=== PATIENT | male | born 1980 | race Caucasian/White ===

== ENCOUNTER 2024-10-24 07:57 | Day surgery (SDC) | payer OTHER ==
[~2024-10-24] VITALS: Ht 170.2 cm; Wt 80.0 kg
[~2024-10-24 07:57] MED LIST: CEFAZOLIN SODIUM 2 GM/20 ML SYR IV SCH; CLONIDINE HCL0.2 MG PO; IBLOOD GLUCOSE TEST STRIP 1 EA TEST VI PRN; LACTATED RINGER'S 1,000 ML IV SCH; LIDOCAINE HCL 1% 5 ML SDV INJ ONE; VENLAFAXINE H37.5 MG PO; VITAMIN D350 MCG PO
[2024-10-24] MEDS ORDERED: OXYMETAZOLINE HCL 30 ML BTL NAS SCH (08:00)
[2024-10-24 08:04] VITALS: BP 126/76
[2024-10-24] MEDS ORDERED: LIDOCAINE 1% W/ EPI 1:100,000 20 ML MDV ONE (08:12)
[2024-10-24] MEDS ORDERED: fentaNYL citrate 100 MCG/2 ML VIAL ONE ×2 (08:18→09:25)
[2024-10-24] MEDS ORDERED: DEXAMETHASONE SOD PHOS 4 MG/ML VIAL ONE (08:18)
[2024-10-24] MEDS ORDERED: LIDOCAINE HCL 2% 5 ML SDV ONE (08:18)
[2024-10-24] MEDS ORDERED: KETOROLAC TROMETHAMINE 30 MG/ML VIAL ONE (08:18)
[2024-10-24] MEDS ORDERED: MIDAZOLAM HCL 2 MG/2 ML VIAL ONE (08:19)
[2024-10-24] MEDS ORDERED: BACTRIM DS TAB1 EACH PO (08:21)
[2024-10-24] MEDS ORDERED: NALOXONE HCL 0.4 MG SYR IV PRN (08:45)
[2024-10-24] MEDS ORDERED: IBLOOD GLUCOSE TEST STRIP 1 EA TEST VI PRN (08:45)
[2024-10-24] MEDS ORDERED: fentaNYL citrate 50 MCG/ML SDV IV PRN (08:45)
[2024-10-24] MEDS ORDERED: MIDAZOLAM HCL 2 MG/2 ML VIAL IV PRN (08:45)
--- NOTE | 2024-10-24 09:43 | NUR ---
10/24/24 0943 Jayla Cancino PATIENT OPENS HIS EYES TO HIS NAME. HE FOLLOWS INSTRUCTIONS TO OPEN HIS EYES. ORAL AIRWAY IS REMOVED. GENTLE ORAL SUCTIONING IS PERFORMED.
[2024-10-24] MEDS ORDERED: HYDROCODONE/ACETA 5/325 TAB PO PRN (10:15)
--- NOTE | 2024-10-24 10:26 | NUR ---
PT ARRIVES TO DS FROM PACU VIA STRETCHER. PT IS A&O AND ASKING APPROPRIATE QUESTIONS AT THIS TIME. PT STATES PAIN IS TOLERABLE, W/PRESSURE IN LFT EAR. RESPIRATIONS EVEN AND UNLABORED, NO SIGNS OF DISTRESS. SHIRLEY SUCTION WITHIN REACH FOR PT USE OF SUCTIONING SPIT. PUDDING AND CRACKERS PROVIDED, PT TOLERATING ICE WATER WITHOUT DIFFICULTY SWALLOWING. PT CALLED AND UPDATED AT PT REQUEST. PT STATES NO FURTHER NEEDS OR QUESTIONS AT THIS TIME, CALL LIGHT WITHIN REACH.
[2024-10-24 10:30] VITALS: BP 123/87
--- NOTE | 2024-10-24 10:50 | NUR ---
DRIP PAD CHANGED D/T SHADOWING THROUGH FRONT LAYER. HUMERA AGUILAR AT BEDSIDE DISCUSSING PROCEDURE AND ANSWERING PT QUESTIONS AT THIS TIME.
--- NOTE | 2024-10-24 11:20 | NUR ---
PT FAMILY ARRIVED. PT REPORTS NEED TO URINE VOID. PT SITS AT BEDSIDE W/NO REPORT OF ONSET OF NAUSEA/DIZZINESS. PT AMBULATES TO RESTROOM W/THIS RN STANDBY ASSIST. PT URINE VOID 225 ML CLEAR/YELLOW URINE. PT BACK TO ROOM AND REQUESTS PRN PAIN MED FOR 4/10 PAIN, GIVEN (SEE EMAR). PT RESTING W/FAMILY AT BEDSIDE EATING CRACKERS. PT REPORTS NO FURTHER NEEDS OR QUESTIONS AT THIS TIME. CALL LIGHT WITHIN REACH.
--- NOTE | 2024-10-24 11:24 | OR ---
[facility] [place] [facility] [address], [place] [address] Signed DATE OF OPERATION: 10/24/2024 SURGEON: Jean Grubbs MD PREOPERATIVE DIAGNOSES: Nasal obstruction due to septal deformity and inferior turbinate hypertrophy. POSTOPERATIVE DIAGNOSES: Nasal obstruction due to septal deformity and inferior turbinate hypertrophy. PROCEDURE: Septoplasty cautery bilateral inferior turbinates. ANESTHESIA: General LMA, BLEACHER SULFITE PULP, Celeste Caballero. 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 This has been unresponsive to appropriate medications. Preop sinus CT has been performed and is negative for sinus pathology. He is taken to the operating room for the above-mentioned procedures. OPERATIVE PROCEDURE AND FINDINGS: After informed consent, the patient was taken to the operating room, placed in the supine position where general LMA anesthesia was induced. The patient and procedure were verified. The patient received preoperative intranasal oxymetazoline and intravenous Ancef. The patient was repositioned. Headlight speculum exam of the nasal cavity showed a septal deformity on the left side. A large spur partially obstructive. The septal mucosa was injected with 1% lidocaine with epi. The septal mucosa was elevated off the spur and the deviated septal bone and cartilage was removed with Sharifa. The airway was markedly improved in this manner. Inferior turbinates were then cauterized with a long handle needle point cautery. Multiple transmucosal passes starting on the right side, medial and inferior surface of the inferior turbinate starting anteriorly extending all the way back posteriorly. Excellent shrinkage of the turbinate was obtained. Improvement in the nasal airway. The same procedure on the left inferior turbinate. Hemostasis was verified. The packing was then placed, one piece of Merocel, trimmed equal amount, coated with Neosporin, tied anteriorly over a pad. The pharynx was suctioned clear of blood secretions. The patient was then awakened, extubated, transported to recovery room in Electronically Signed By: JEAN GRUBBS MD 10/24/24 1124 PATIENT NAME: RAHEEM HERBERT OPERATIVE REPORT DATE OF : 82 REPORT #: [id number] PHYSICIAN: JEAN GRUBBS MD PCP: GARY HERNÁNDEZ REPORT IS CONFIDENTIAL AND NOT TO BE RELEASED WITHOUT AUTHORIZATION [address] [address] Signed good condition. No complications. BLOOD LOSS: Minimal. SPECIMEN: None. DRAINS: None. PACKING: One piece of Merocel each nostril. Jean Grubbs MD GC/MODL /[id number] Copies: ~ Electronically Signed By: JEAN GRUBBS MD 10/24/24 1124 PATIENT NAME: RAHEEM HERBERT OPERATIVE REPORT DATE OF : 82 REPORT #: [id number] PHYSICIAN: JEAN GRUBBS MD PCP: GARY HERNÁNDEZ REPORT IS CONFIDENTIAL AND NOT TO BE RELEASED WITHOUT AUTHORIZATION
[2024-10-24 11:27] VITALS: BP 129/72
--- NOTE | 2024-10-24 12:05 | NUR ---
IN PT ROOM FOR POST PAIN DIRECT CHILL CASTER ASSESSMENT. PT STATES PAIN HAS IMPROVED AND HE IS READY TO GO HOME. PT GETTING DRESSED W/ ASSISTANCE, CALL LIGHT WITHIN REACH.
--- NOTE | 2024-10-24 12:20 | NUR ---
IN PT ROOM FOR DC EDUCATION. PT AND PT STATE VERBAL UNDERSTANDING TO DC EDUCATION AT THIS TIME. DRIP PAD DEMONSTRATION AT THIS TIME FOR PT AND , SUPPLIES PROVIDED AND VERBAL UNDERSTANDING TO DEMONSTRATION. IV DC'ED, WNL. PT OFF OF UNIT VIA WC TO PASSENGER SIDE OF VEHICLE. PT GOES TO GET INTO CAR AND STATES, "IM GLO THROW UP". THIS RN PROVIDES EMESIS BAG. PT THEN STATES, "NEVERMIND, IM GLO PASS OUT". THIS RN AT HEAD OF WC TO SUPPORT AIRWAY AND HEAD CONTROL. PT AT SIDE OF WC. PASSING BY RN AT SIDE OF WC TO ASSIST. PT BACK TO UNIT AND THIS RN 1PA W/BEAR HUG PT BACK TO BED, VS TAKEN, WNL. PT RESTING IN BED NOW W/HOB 30 DEGREES. BAIRHUGGER DELIVERING COLD AIR TO ABDOMEN, COLD RAG ON FOREHEAD, AND CPOX IN PLACE. PT STATES HE IS STARTING TO FEEL BETTER, BUT IS TIRED. PT RESTING W/EYES CLOSED. FAMILY AT BEDSIDE. PT ACROSS FROM NURSE STATION. CALL LIGHT WITHIN REACH.
[2024-10-24 12:29] VITALS: BP 115/73
--- NOTE | 2024-10-24 12:55 | NUR ---
IN PT ROOM, PT AWAKENING. PT ASKED FOR CRANBERRY JUICE AND SIPS OF ICE WATER. PROVIDED, AND PT TOLERATING WELL. CRACKERS AND PUDDING PROVIDED, PT DENIED SANDWICH AT THIS TIME. CALL LIGHT WITHIN REACH, PT AT BEDSIDE. HUMERA AGUILAR CALLED @1487 FOR UPDATE ON PT, NO NEW ORDERS AT THIS TIME.
--- NOTE | 2024-10-24 13:16 | NUR ---
IN PT ROOM FOR ASSESSMENT. PT STATES HE IS FEELING A LOT BETTER. PT SKIN IS NO LONGER SWEATY AND HE STATES HE HIS FEELING MORE LIKE HIMSELF. REMAINS AT BEDSIDE AND CALL LIGHT WITHIN REACH, PT STATES NO FURTHER NEEDS OR QUESTIONS AT THIS TIME.
--- NOTE | 2024-10-24 13:30 | NUR ---
PT STATES READY TO ATTEMPT TO GO HOME. PT SITS AT BEDSIDE FOR 5 MINUTES W/THIS RN IN ROOM, PT STATES NO NAUSEA, DIZZINESS AT THIS TIME. PT THEN STANDS FOR 1 MINUTE AND STATES NO NAUSEA, DIZZINESS. PT OFF OF UNIT AT 1340. PT TO PASSENGER SIDE OF VEHICLE, ALL BELONGINGS IN PT POSSESSION. PT STATES NO FURTHER NEEDS OR QUESTIONS AT THIS TIME.
[2024-10-24] MEDS ORDERED: SEVOFLURANE 250 ML BTL INH ONE (14:51)
== END 2024-10-24 13:40 | disposition home or self-care (01) ==
LOC: DS 07:57
PROVIDERS: ATTEND Otolaryngology
PROC: 09SM0ZZ Reposition Nasal Septum, Open Approach (ICD-10-PCS; principal; 2024-10-24 09:00)
PROC: 095L7ZZ Destruction of Nasal Turbinate, Via Natural or Artificial Opening (ICD-10-PCS; 2024-10-24 09:00)
DX: J34.2 Deviated nasal septum (principal); J34.3 Hypertrophy of nasal turbinates; K21.9 Gastro-esophageal reflux disease without esophagitis
CPT/HCPCS: J0690; J1100; J1885; J2003; J2250; J2405; J2704; J3010; J7121